=== PATIENT | male | born 1975 ===

== ENCOUNTER 2018-01-10 14:15 | Emergency (ER) | payer BC ==
[~2018-01-10] VITALS: Ht 175.3 cm; Wt 79.4 kg
[2018-01-10 15:23] VITALS: BP 131/84
== END 2018-01-10 16:04 | disposition home or self-care (01) ==
LOC: ED 14:15
DX: J06.9 Acute upper respiratory infection, unspecified (principal); R20.2 Paresthesia of skin
CPT/HCPCS: Q0092